=== PATIENT | female | born 1970 | race African-American/Black ===

== ENCOUNTER 2017-03-17 15:23 | Emergency (ER) | payer BC ==
[~2017-03-17 15:23] MED LIST: CIPRO PO; FOLIC ACID1 MG PO; LORTAB 5/500 TA1 TA1 PO; TREXALL10 MG PO
== END 2017-03-17 16:39 | disposition home or self-care (01) ==
LOC: SED 15:23
DX: J02.0 Streptococcal pharyngitis (principal)
CPT/HCPCS: 87880; 99283